=== PATIENT | male | born 1995 | race Hispanic/Latino ===

== ENCOUNTER 2021-08-25 04:11 | Emergency (ER) | payer MEDICAID, OTHER ==
[2021-08-25] MEDS ORDERED: KETOROLAC 60 MG VIAL (30MG/ML) IM ONE (04:30)
[2021-08-25 05:00] LABS: APPEARANCE,URINE CLEAR (CLEAR); BILIRUBIN,URINE NEGATIVE (NEGATIVE); COLOR,URINE YELLOW (YELLOW); GLUCOSE, URINE (UA) NEGATIVE (NEGATIVE); KETONES,URINE NEGATIVE (NEGATIVE); LEUKOCYTE ESTERASE ,URINE NEGATIVE (NEGATIVE); NITRATE,URINE NEGATIVE (NEGATIVE); OCCULT BLOOD,URINE NEGATIVE (NEGATIVE); PH,URINE 6.5 (5.0-8.0); PROTEIN,URINE NEGATIVE (NEGATIVE); UROBILINOGEN,URINE 0.2 mg/dL (0.2-1.0)
[2021-08-25] MEDS ORDERED: DICL50TA9 PO (05:24)
[2021-08-25 05:30] VITALS: BP 128/54
== END 2021-08-25 05:33 | disposition home or self-care (01) ==
LOC: EDH 04:11
DX: N50.812 Left testicular pain (principal); Z88.0 Allergy status to penicillin; Z79.1 Long term (current) use of non-steroidal anti-inflammatories (NSAID)
CPT/HCPCS: 76870; 81003; 96372; 99284; J1885

== ENCOUNTER 2022-06-15 06:09 | Emergency (ER) | payer OTHER ==
[~2022-06-15] VITALS: Ht 180.3 cm; Wt 124.7 kg
[~2022-06-15 06:09] MED LIST: DICL50TA9 PO
[2022-06-15] MEDS ORDERED: NAPR375T6 PO (08:09)
[2022-06-15 08:24] VITALS: BP 126/82
== END 2022-06-15 08:34 | disposition home or self-care (01) ==
LOC: EDH 06:09
DX: M79.602 Pain in left arm (principal); Z79.899 Other long term (current) drug therapy; Z88.1 Allergy status to other antibiotic agents; Y04.2XXA Assault by strike against or bumped into by another person, initial encounter; Y93.89 Activity, other specified; Y92.89 Other specified places as the place of occurrence of the external cause; Y99.8 Other external cause status
CPT/HCPCS: 73090